=== PATIENT | male | born 2000 ===

== ENCOUNTER 2021-07-12 01:34 | Emergency (ER) | payer OTHER ==
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
[2021-07-12 01:58] VITALS: BP 115/72
== END 2021-07-12 04:00 ==
LOC: ED 01:34
DX: F10.129 Alcohol abuse with intoxication, unspecified; V89.2XXA Person injured in unspecified motor-vehicle accident, traffic, initial encounter; Y93.89 Activity, other specified; Y92.89 Other specified places as the place of occurrence of the external cause; Y99.8 Other external cause status
CPT/HCPCS: 99282